=== PATIENT | male | born 1965 | race African-American/Black ===

== ENCOUNTER → 2019-10-12 | Outpatient (CLI) | payer MEDICAID ==
[~2019-10-12] MED LIST: AMLO5TAB88 PO; ETOD400T3 PO; LISI10TA5 PO; METH4TAB PO
== END | disposition home or self-care (01) ==
LOC: LAB 12:00
PROVIDERS: ATTEND Specialist
DX: Z01.818 Encounter for other preprocedural examination (principal); Z11.59 Encounter for screening for other viral diseases
CPT/HCPCS: U0003-CS

== ENCOUNTER 2019-10-14 07:52 | Day surgery (SDC) | payer MEDICAID ==
[~2019-10-14] VITALS: Ht 170.2 cm; Wt 79.8 kg
[~2019-10-14 07:52] MED LIST changes: -AMLO5TAB88 PO; -ETOD400T3 PO; -LISI10TA5 PO
[2019-10-14] MEDS ORDERED: LIDOCAINE HCL 1% 20ML VIAL (Pyxis) INJ ONE (08:21)
[2019-10-14] MEDS ORDERED: BUPIVACAINE HCL/PF 0.5% (5MG/ML) 10ML ONE (08:22)
[2019-10-14] MEDS ORDERED: BACITRACIN 50,000 UNITS/VIAL ONE (08:23)
[2019-10-14] MEDS ORDERED: LACTATED RINGERS 1,000 ML IV SCH (08:53)
[2019-10-14] MEDS ORDERED: MIDAZOLAM HCL 2 MG/2 ML VIAL ONE (09:14)
[2019-10-14] MEDS ORDERED: METOCLOPRAMIDE HCL 10MG/2ML VIAL ONE (09:36)
[2019-10-14] MEDS ORDERED: GLYCOPYRROLATE 0.2 MG/ML 2ML VIAL ONE (09:36)
[2019-10-14] MEDS ORDERED: NEOSTIGMINE METHYLSULFATE 1MG/ML 10 ML VIAL ONE (09:36)
[2019-10-14] MEDS ORDERED: FENTANYL CITRATE/PF 50MCG/ML 2ML VIAL ONE ×2 (09:36→10:09)
[2019-10-14] MEDS ORDERED: ROCURONIUM BROMIDE 10MG/ML VIAL 5ML IV ONE (09:36)
[2019-10-14] MEDS ORDERED: ONDANSETRON HCL 4MG/2ML INJ ONE (09:36)
[2019-10-14] MEDS ORDERED: SUCCINYLCHOLINE CHLORIDE 200MG/10ML IV ONE (09:36)
[2019-10-14] MEDS ORDERED: PROPOFOL 200MG/20ML VIAL IV ONE (09:37)
[2019-10-14] MEDS ORDERED: AMLO5TAB88 PO (09:49)
[2019-10-14] MEDS ORDERED: ETOD400T3 PO (09:49)
[2019-10-14] MEDS ORDERED: LISI10TA5 PO (09:49)
[2019-10-14] MEDS ORDERED: CEFAZOLIN SODIUM 1000MG/VIAL ONE (10:02)
[2019-10-14] MEDS ORDERED: ONDANSETRON HCL 4MG/2ML INJ IV PRN (11:30)
[2019-10-14] MEDS ORDERED: HYDROMORPHONE HCL/PF 2MG/ML CPJ IV PRN (11:30)
[2019-10-14] MEDS ORDERED: MEPERIDINE HCL/PF 25MG/ML CPJ IV PRN (11:30)
[2019-10-14] MEDS ORDERED: DIPHENHYDRAMINE 50MG/ML VIAL IV SCH (11:30)
[2019-10-14] MEDS ORDERED: SODIUM CHLORIDE 0.9% 1,000 ML IV ONE (11:40)
[2019-10-14] MEDS: MEPERIDINE HCL/PF 25MG/ML CPJ IV PRN ×2 (12:00→13:32)
[2019-10-14] MEDS: MORPHINE SULFATE 2 MG/ML CPJ (NOT FOR IM USE) IV PRN ×3 (12:44→15:29)
[2019-10-14 15:29] VITALS: BP 160/84
== END 2019-10-14 16:20 | disposition home or self-care (01) ==
LOC: OR 07:52
PROVIDERS: ATTEND Specialist
DX: K64.9 Unspecified hemorrhoids (principal); Z88.8 Allergy status to other drugs, medicaments and biological substances; Z79.899 Other long term (current) drug therapy
CPT/HCPCS: 46230; 46947; 88304; J0330; J0690; J2175; J2250; J2270; J2405; J2704; J2765; J3010; J3490; J2710